=== PATIENT | female | born 1975 | race Caucasian/White ===

== ENCOUNTER 2025-02-06 08:59 | Emergency (ER) | payer BC, SELFPAY ==
--- NOTE | ~2025-02-06 | XR_ITS ---
AP, oblique, and lateral views of the left fifth toe CLINICAL HISTORY: Injury FINDINGS: There is a transverse fracture the proximal shaft of the fifth proximal phalanx, minimally displaced. No other fracture or dislocation seen. No intra-articular extension. Joint spaces are inta ct. Soft tissues are unremarkable. IMPRESSION: Acute transverse fracture of the fifth proximal phalanx, as detailed above. Reviewed, dictated and finalized at location .
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
--- OUTSIDE RECORDS SUMMARY | 2025-02-06 09:06 | XMS_ITS | Referral Summary ---
Author Organization [facility] Address [address] [place] [address] Care Team Providers Care Independent Jeweler Name Role Phone Lefty Dowell MD Primary Care Provider [phone] Shalom Yan MD Unavailable Allergies Active Allergy Reactions Criticality Noted Date [...] daily. Assessment & Plan (08/21/2022 3:03 PM DUST CONTROL ENGINEER): Stable, generally well controlled, asthma mostly triggered by exposure to cat dander; patient reports CT lives at home Continue cetirizine 10 mg daily; albuterol 1 puff p.r.n. for cough or dyspnea Assessment & Plan (08/02/2021 3:46 PM DUST CONTROL ENGINEER): Continues to have regular asthma; lives with [...] daily. Assessment & Plan (08/02/2021 3:46 PM DUST CONTROL ENGINEER): Stable, well controlled; continue cetirizine 10 mg daily Assessment & Plan (01/17/2021 1:30 PM CDT): Stable, controlled with Zyrtec 10 mg daily Will continue current dose Assessment & Plan (07/19/2020 9:19 AM DUST CONTROL ENGINEER): Stable on Zyrtec, patient continues to have [...] effects. Assessment & Plan (08/21/2022 3:04 PM DUST CONTROL ENGINEER): Stable, generally well controlled, patient not on any current medications reports she is handling everything well; reports multiple stressors at home including family health issues associated with parents Will continue to monitor, encourage individual counseling as necessary; encourage patient to follow-up to discuss medications if symptoms worsen or no longer able to be managed with coping strategies Assessment & Plan (08/02/2021 3:46 PM DUST CONTROL ENGINEER): Stable, well controlled; patient not on any current medications, feels anxiety is well controlled Assessment & Plan (01/17/2021 1:30 PM CDT): Improved, resolved Patient reports that she no longer issues with anxiety as life stressors have changed Assessment & Plan (07/19/2020 9:18 AM DUST CONTROL ENGINEER): Stable, well controlled New current maintenance therapy, able to perform daily activities without issue Assessment & Plan (06/20/2017 5:17 PM DUST CONTROL ENGINEER): Increase venlafaxine to 225 mg daily. Recommended [...] 06/20/201710/22 Assessment & Plan (06/20/2017 5:18 PM DUST CONTROL ENGINEER): Flu shot recommended but declined and she is aware the risks this poses to her health. Tetanus booster every 10 years. She should see her quality assurance monitor final yearly for breast exam and Pap smear is a direct. Mammogram at age 42. We will see her back in a year with fasting lab sooner if needed. Tobacco dependence syndrome 12/11/2013 05/01/2020 Overview (11/01/2016): TOBACCO USE DISORDER Assessment & Plan (08/19/2018 12:38 PM DUST CONTROL ENGINEER): She was advised to quit smoking; the risks of continued tobacco use discussed. Immunizations Immunization Administration Dates Next Due Influenza, Quadrivalent, Lizeth l Culture-based MDCK, Preservative Free, Antibiotic Free, Intramuscular 05/13/2022 Influenza, Unspecified 04/29/2023,2021,05/08/2021,05/03,05/01/2020(Deferred: Patient Refused),05/01/2020(Deferred: Patient Refused),07/28/2019(Deferred: Patient Refused),07/28/2018,05/12/2018(Deferre d: Patient Refused),06/20/2017(Deferred: Patient Refused) Moderna SARS-CoV-2 Monovalen t Vaccination (12+ YRS) 06/18/2021 Tdap 03/01/2009 Social History Tobacco Use Types Packs/Day Years [...] on file Legal Sex Female 5:14 PM DUST CONTROL ENGINEER Gender Identity Not on file Sexual Orientation Not on file Occupation Industry Job Start Date Job End Date Teacher Not on file Not on file Not on file Last Filed Vital Signs Vital Sign Reading [...] 10/26/2024 2:26 PM CDT Plan of Treatment Not on file Procedures Procedure Name Priority Date/Time Associated Diagnosis [...] CDT Amanda Pfeiffer NP LAB MICROBIOLOGY - [facility] ORDERABLES Final Result Performing Organization Address City/State/[facility] Co de Phone Number [facility] [address] Department [place] [address] * DIAGNOSTIC MAMMOGRAM BILATERAL W [...] Most Recently Relevant to Health Maintenance Insurance [facility] ANTHEM ACCESS Care Teams Independent Jeweler Relationship Specialty Start Date End Date Lefty Dowell MD [address] [place] [address] PCP - General Family Medicine 05/01/20 Shalom Yan MD [address] [address] Referring Physician Obstetrics and Gynecology 01/07/24
--- NOTE | 2025-02-06 09:08 | ED_ITS ---
HPI - General Adult General Chief complaint: Extremity Injury, Lower Stated complaint: left baby toe injury Time Seen by Provider: 02/06/25 09:08 Source: patient Mode of arrival: ambulatory Limitations: no limitations History of Present Illness HPI narrative: 49-year-old female patient presents to the [facility] with complaints of left pinky toe pain. Patient states she was at a gathering yesterday and went to go and get some food and hit her toe on a chair as she was walking. Patient states that she did take a bit last night and did ice it and took ibuprofen for pain. Related Data Home Medications ?Medication ?Instructions ?Recorded ?Confirmed ?Last Taken ?Type albuterol sulfate 90 mcg/actuation inhalation 02/06/25 Unknown History aerosol inhaler Allergies Allergy/AdvReac Type Severity Reaction Status Date / Time propoxyphene (From Darvon) Allergy Unknown Unknown Verified 02/06/25 09:10 Review of Systems Review of Systems: CONSTITUTIONAL: Denies fever, chills, or sweats. EYES: Denies visual changes, redness, or discharge. ENT: Denies rhinorrhea, congestion, sore throat, or otalgia. CARDIOVASCULAR: Denies chest pain, palpitations, or edema. RESPIRATORY: Denies cough or dyspnea. GASTROINTESTINAL: Denies abdominal pain, nausea, vomiting, or diarrhea. GENITOURINARY: Denies dysuria or hematuria. SKIN: Denies rash or itching. MUSCULOSKELETAL: Denies back pain, joint pain, or myalgia. Positive left pinky toe pain NEUROLOGIC: Denies headache, numbness, or weakness. PSYCHIATRIC: Denies anxiety or depression. [facility] Past Medical History Medical History (Updated 02/06/25 @ 09:35 by FRANCISCO JAVIER Hayes) No significant past medical history Comments At the time of my signature I agree with nursing past medical history, surgical, social, and family history. There is no relevant family history pertinent to the presenting complaint. Exam Narrative: GENERAL: Well-appearing, well-nourished, and in no acute distress. HEAD: Normocephalic, atraumatic. EYES: PERRLA and EOMI. ENT: Nares clear, no rhinorrhea or epistaxis. Mucous membranes moist. NECK: Supple. No lymphadenopathy CHEST: Clear to auscultation. No respiratory distress. HEART: Regular rate and rhythm. No murmur heard. Normal peripheral pulses. ABDOMEN: Soft, nontender, nondistended, normal active bowel sounds. EXTREMITIES: Patient able to bear weight and ambulate but has increased pain to the left pinky toe. there is ecchymosis noted to the mid foot under the left pinky toe. Nolesions, ulcers or break in skin integrity. The L pinky toe is with obvious deformity when compared to the right pinky toe. No bony step-off, tender to palpation over the D IP over the left pinky toe, no pain over the midfoot or hindfoot or sole. Normal plantar/dorsiflexion, inversion/eversion. Distal motor and neurovascular status are intact SKIN: Warm, dry, no rash. NEURO: No focal deficits. Alert and oriented x3. Course Course Level of Care: Express Care Visit Vital Signs Vital signs: Vital Signs Temperature 37.1 C 02/06/25 09:13 Pulse Rate 95 02/06/25 09:13 Respiratory Rate 16 02/06/25 09:13 Blood Pressure 104/73 02/06/25 09:13 Pulse Oximetry 100 02/06/25 09:13 Oxygen Delivery Room Air 02/06/25 09:13 Temperature 37.1 C 02/06/25 09:13 Pulse Rate 95 02/06/25 09:13 Respiratory Rate 16 02/06/25 09:13 Blood Pressure 104/73 02/06/25 09:13 Pulse Oximetry 100 02/06/25 09:13 Oxygen Delivery Room Air 02/06/25 09:13 Vital signs reviewed. Medical Decision Making MDM Narrative Medical decision making narrative: discussed with patient that the x-ray does show an obvious displaced fracture of the left pinky toe. Discussed with patient is we will go ahead and evangelina tape the toe and place her in an ortho shoe. We will provide her a copy of the x-ray and have referred her to Orthopedics for follow-up. Discussed with her she will need to call tomorrow to schedule an appointment for further evaluation. Recommended that she take Tylenol only at due to ibuprofen can delay healing and fractures at times. Patient verbalized understanding denies any other questions or concerns at this time. Differential Diagnosis Differential Diagnosis: Differential diagnosis: Foot fracture, crush injury, compartment syndrome, contusion, sprain, tendinitis,lisfranc sprain or fracture, avulsion fracture, grown toenail, diabetic ulcer. Vital Signs Vital Signs: Vital Signs Temperature 37.1 C 02/06/25 09:13 Pulse Rate 95 02/06/25 09:13 Respiratory Rate 16 02/06/25 09:13 Blood Pressure 104/73 02/06/25 09:13 Pulse Oximetry 100 02/06/25 09:13 Oxygen Delivery Room Air 02/06/25 09:13 Temperature 37.1 C 02/06/25 09:13 Pulse Rate 95 02/06/25 09:13 Respiratory Rate 16 02/06/25 09:13 Blood Pressure 104/73 02/06/25 09:13 Pulse Oximetry 100 02/06/25 09:13 Oxygen Delivery Room Air 02/06/25 09:13 Critical Care Time Critical Care Time Critical Care Time: No Discharge Plan Discharge Clinical Impression: Closed fracture of fifth toe of left foot Patient Disposition: Home Condition: Stable Instructions: Antibiotic Form, Toe Fracture (ED) Additional Instructions: Avoid weight bearing until the pain subsides. Ice to the area 20-30 minutes 4-6 times a day Elevate above heart Elastic wrap or orthopedic splint as directed for comfort for the next 5-7 days Tylenol for for pain. May take a maximum of 4000 mg per day. Please call the orthopedic surgeon that was referred today for an appointment for follow-up Follow up with your primary care provider if the condition is not improving within 1 week or sooner if the Condition worsens with numbness, tingling, decrease sensation with weakness to seek ER. Patient Language: Lithuanian Prescriptions: No Action albuterol sulfate 90 mcg/actuation HFA aerosol inhaler INHALATION Follow-up/Referrals: Meg,MD Lefty [Primary Care Provider] - Terrance Mixon MD [Physician] - Time of Disposition: :
[2025-02-06 09:13] VITALS: BP 104/73; PULSE 95; RESP 16; TEMP 37.1; O2SAT 100
== END 2025-02-06 09:45 | disposition home or self-care (01) ==
PROVIDERS: Emergency Provider Nurse Practitioner Family; PCP Hospitalist
DX: S92.512A Displaced fracture of proximal phalanx of left lesser toe(s), initial encounter for closed fracture (principal); W22.8XXA Striking against or struck by other objects, initial encounter
CPT/HCPCS: 73660; 99214; G0463